=== PATIENT | male | born 1995 | race Two or more races ===

== ENCOUNTER 2018-07-03 18:24 | Emergency (ER) | payer OTHER ==
[~2018-07-03] VITALS: Ht 167.6 cm; Wt 63.5 kg
[2018-07-03 18:45] VITALS: BP 134/60
[2018-07-03] MEDS ORDERED: methylPREDNISolone SOD SUCC 125 MG/2 ML VL IM ONE (21:30)
[2018-07-03] MEDS ORDERED: KETOROLAC TROMETH 60MG/2ML VIAL IM ONE (21:30)
== END 2018-07-03 22:50 | disposition home or self-care (01) ==
LOC: ER 18:32
DX: S05.92XA Unspecified injury of left eye and orbit, initial encounter (principal); H11.422 Conjunctival edema, left eye; W22.8XXA Striking against or struck by other objects, initial encounter; Y93.89 Activity, other specified; Y99.8 Other external cause status; Y92.89 Other specified places as the place of occurrence of the external cause
CPT/HCPCS: 96372; 99283; J1885; J2930